=== PATIENT | female | born 1955 | race Caucasian/White ===

== ENCOUNTER → 2017-06-14 | Outpatient (CLI) | payer BC ==
--- NOTE | 2017-06-18 07:14 | MM ---
Reason for exam: screening (asymptomatic). Last mammogram was performed 1 year and 4 months ago. History: Patient is postmenopausal. Family history of breast cancer in sister at age 55. Physical Findings: A clinical breast exam by your physician is recommended on an annual basis and results should be correlated with mammographic findings. MG Screening Mammo w CAD Bilateral CC and MLO view(s) were taken. Prior study comparison: February 16, 2016, bilateral MG screening mammo w CAD. April 14, 2013, bilateral digital screening mammo w/CAD. There are scattered fibroglandular densities. No significant changes when compared with prior studies. ASSESSMENT: Negative, BI-RAD 1 RECOMMENDATION: Routine screening mammogram of both breasts in 1 year.
== END | disposition home or self-care (01) ==
LOC: RADMAMWWP 17:04
PROVIDERS: ATTEND Obstetrics & Gynecology
DX: Z12.31 Encounter for screening mammogram for malignant neoplasm of breast (principal)

== ENCOUNTER → 2018-10-13 | Outpatient (CLI) | payer MEDICARE, BC ==
--- NOTE | 2018-10-14 09:47 | MM ---
Reason for exam: screening (asymptomatic). Last mammogram was performed 1 year and 4 months ago. History: Patient is postmenopausal. Family history of breast cancer in sister at age 55. Physical Findings: A clinical breast exam by your physician is recommended on an annual basis and results should be correlated with mammographic findings. MG 3D Screening Mammo W/Cad Bilateral CC and MLO view(s) were taken. Prior study comparison: June 14, 2017, bilateral MG screening mammo w CAD. February 16, 2016, bilateral MG screening mammo w CAD. The breast tissue is heterogeneously dense. This may lower the sensitivity of mammography. There is no discrete abnormality. No significant changes when compared with prior studies. ASSESSMENT: Negative, BI-RAD 1 RECOMMENDATION: Routine screening mammogram of both breasts in 1 year.
== END | disposition home or self-care (01) ==
LOC: RADMAMWWP 07:17
PROVIDERS: ATTEND Obstetrics & Gynecology
DX: Z12.31 Encounter for screening mammogram for malignant neoplasm of breast (principal)
CPT/HCPCS: 77063; 77067

== ENCOUNTER → 2020-05-03 | Outpatient (CLI) | payer MEDICARE, BC ==
--- NOTE | 2020-05-05 09:25 | MM ---
Reason for exam: screening (asymptomatic). Last mammogram was performed 1 year and 7 months ago. History: Patient is postmenopausal. Family history of breast cancer in sister at age 55. Physical Findings: A clinical breast exam by your physician is recommended on an annual basis and results should be correlated with mammographic findings. MG 3D Screening Mammo W/Cad Bilateral CC and MLO view(s) were taken. Prior study comparison: October 13, 2018, bilateral MG 3d screening mammo w/cad. June 14, 2017, bilateral MG screening mammo w CAD. The breast tissue is heterogeneously dense. This may lower the sensitivity of mammography. No significant changes when compared with prior studies. ASSESSMENT: Benign, BI-RAD 2 RECOMMENDATION: Routine screening mammogram of both breasts in 1 year.
== END | disposition home or self-care (01) ==
LOC: RADMAMWWP 13:40
PROVIDERS: ATTEND Obstetrics & Gynecology
DX: Z12.31 Encounter for screening mammogram for malignant neoplasm of breast (principal); Z80.3 Family history of malignant neoplasm of breast
CPT/HCPCS: 77063; 77067

== ENCOUNTER 2021-07-24 10:09 | Emergency (ER) | payer MEDICARE, BC ==
--- NOTE | 2021-07-24 13:10 | ED ---
General Adult HPI - General Source: RN notes reviewed <Kasi Velasquez - Last Filed: 07/24/21 13:08> <Merle Mai - Last Filed: 07/27/21 00:34> - General Stated complaint: COVID + wants antibodies - History of Present Illness Initial comments: 65-year-old female presents to the emergency room for a chief complaint of antibodies. Patient states that last she started to feel sick. States she had a cough and head cold. States the cough resolved and she is still having a head cold including congestion. Patient states that she would like to antibodies. Denies shortness of breath. Denies chest pain. Denies fevers.Patient has no other complaints at this time including shortness of breath, chest pain, abdominal pain, nausea or vomiting, headache, or visual changes. (Kasi Velasquez) - Related Data Allergies Allergy/AdvReac Type Severity Reaction Status Date / Time No Known Allergies Allergy Verified 07/24/21 13:09 Review of Systems ROS Other: All systems not noted in ROS Statement are negative. <Kasi Velasquez - Last Filed: 07/24/21 13:08> ROS Other: All systems not noted in ROS Statement are negative. <Merle Mai - Last Filed: 07/27/21 00:34> ROS Statement: Those systems with pertinent positive or pertinent negative responses have been documented in the HPI. General Exam General appearance: alert, in no apparent distress Head exam: Present: atraumatic Eye exam: Present: normal appearance, PERRL, EOMI. Absent: scleral icterus, conjunctival injection ENT exam: Present: normal exam, mucous membranes moist Neck exam: Present: normal inspection, full ROM. Absent: tenderness Respiratory exam: Present: normal lung sounds bilaterally. Absent: respiratory distress, wheezes Cardiovascular Exam: Present: regular rate, normal rhythm, normal heart sounds GI/Abdominal exam: Present: soft, normal bowel sounds <Kasi Velasquez - Last Filed: 07/24/21 13:08> Course Vital Signs 07/24/21 07/24/21 07/24/21 13:03 13:38 14:02 Temperature 97.6 F 98.4 F 98.4 F Pulse Rate 77 Pulse Rate [ 74 71 Left Pulse Oximetery] Respiratory 18 16 16 Rate Blood Pressure 140/73 Blood Pressure 145/82 134/76 [Left Arm Sitting] O2 Sat by Pulse 98 99 99 Oximetry Medical Decision Making <Kasi Velasquez - Last Filed: 07/24/21 13:08> <Merle Mai - Last Filed: 07/27/21 00:34> - Medical Decision Making Vitals are stable. Patient is well-appearing. 98% on room air. No respiratory distress. Patient had a positive test at home. Patient was given antibodies and discharged home with strict return parameters. (Kasi Velasquez) I was available for consultation in the emergency department. The history and physical exam were done by the midlevel provider. I was consulted for this patients care. I reviewed the case with the midlevel provider and based on thei r presentation of the patient, I agree with the assessment, medical decision making and plan of care as documented. Chart was dictated using [employer] dictation software. Attempts were made to correct any dictation errors however some typographical errors may persist. (Merle Mai) Disposition Is patient prescribed a controlled substance at d/c from ED?: No Time of Disposition: 13:09 <Kasi Velasquez - Last Filed: 07/24/21 13:08> <Merle Mai - Last Filed: 07/27/21 00:34> Clinical Impression: COVID-19 Disposition: HOME SELF-CARE Condition: Good Instructions (If sedation given, give patient instructions): Coronavirus Disease 2019 (COVID-19) Additional Instructions: Please follow-up with your doctor in one to 2 days. Return to the emergency room for any worsening symptoms. Referrals: Sandrita Maria MD [Primary Care Provider] - 1-2 days
[2021-07-24] MEDS ORDERED: SODIUM CHLORIDE 0.9% 50 ML IVPB ONE (13:30)
[2021-07-24] MEDS ORDERED: CASIRIVIMAB (REGN10933) (EUA) 600 MG, IMDEVIMAB (REGN10987) (EUA) 600 MG in SODIUM CHLO... IVPB ONE (13:30)
[2021-07-24 13:50] VITALS: RESP 16; TEMP 98.4
[2021-07-24 14:03] VITALS: BP 134/76; PULSE 71
== END 2021-07-24 14:49 | disposition home or self-care (01) ==
LOC: EC 10:09
DX: U07.1 COVID-19 (principal)
CPT/HCPCS: 99283 ×2; M0243; Q0243

== ENCOUNTER → 2021-08-31 | Outpatient (CLI) | payer MEDICARE, BC ==
--- NOTE | 2021-08-31 19:23 | BD ---
EXAMINATION TYPE: Axial Bone Density DATE OF EXAM: 08/31/2021 COMPARISON: NONE CLINICAL HISTORY: Postmenopausal screening Height: Weight: FRAX RISK QUESTIONS: Alcohol (3 or more units per day): no Family History (Parent hip fracture): no Glucocorticoids (More than 3mos): no (Ex: prednisone, prednisolone, methylprednisolone, dexamethasone, and hydrocortisone). History of Fracture in Adulthood: yes Secondary Osteoporosis: 1. Type 1 Diabetes: no 2. Hyperthyroidism: no 3. Menopause before 45: no 4. Malnutrition: no 5. Chronic liver disease: no Rheumatoid Arthritis: no Current Tobacco Use: no RISK FACTORS HISTORY OF: Surgery to Spine/Hip(right/left)/Wrist (right/left): no Family History of Osteoporosis: no Active: yes Diet low in dairy products/other sources of calcium: yes Postmenopausal woman: yes Lost more than 2 inches in height since high school: yes MEDICATIONS: aldactone, aspirin, coreg, Lipitor, losartan, Plavix Additional History: EXAM MEASUREMENTS: Bone mineral densitometry was performed using the [employer] System. Bone mineral density as measured about the Lumbar spine is: ----- L1-L4(G/cm2): 1.202 T Score Values are as follows: ----- L2: -0.7 ----- L3: 0.3 ----- L4: 1.0 ----- L1-L4: 0.2 Bone mineral density : baseline Bone mineral density about the R hip (g/cm2): 0.40 Bone mineral density about the L hip (g/cm2): 0.887 T Score values are as follows: -----R Neck: -1.4 -----L Neck: -1.1 -----R Total: -0.4 -----L Total: -0.5 Bone mineral density : baseline IMPRESSION: Osteopenia (T Score between -2.5 and -1). There is slightly increased risk of fracture and the patient may be considered for treatment. Re-Screen 2-5 years. NOTE: T-SCORE=SD OF THE YOUNG ADULT MEAN.
== END | disposition home or self-care (01) ==
LOC: RADBDWWP 09:47
PROVIDERS: ATTEND Obstetrics & Gynecology
DX: M85.89 Other specified disorders of bone density and structure, multiple sites (principal); Z78.0 Asymptomatic menopausal state
CPT/HCPCS: 77080

== ENCOUNTER → 2021-09-27 | Outpatient (CLI) | payer MEDICARE, BC ==
--- NOTE | 2021-09-28 10:10 | MM ---
Reason for exam: screening (asymptomatic). Last mammogram was performed 1 year and 5 months ago. History: Patient is postmenopausal. Family history of breast cancer in sister at age 55. Physical Findings: A clinical breast exam by your physician is recommended on an annual basis and results should be correlated with mammographic findings. MG 3D Screening Mammo W/Cad Bilateral CC and MLO view(s) were taken. Prior study comparison: May 03, 2020, bilateral MG 3d screening mammo w/cad. October 13, 2018, bilateral MG 3d screening mammo w/cad. The breast tissue is heterogeneously dense. This may lower the sensitivity of mammography. There are benign appearing vascular calcifications bilaterally. There is no discrete abnormality. ASSESSMENT: Benign, BI-RAD 2 RECOMMENDATION: Routine screening mammogram of both breasts in 1 year.
== END | disposition home or self-care (01) ==
LOC: RADMAMWWP 14:30
PROVIDERS: ATTEND Obstetrics & Gynecology
DX: Z12.31 Encounter for screening mammogram for malignant neoplasm of breast (principal); Z78.0 Asymptomatic menopausal state; Z80.3 Family history of malignant neoplasm of breast
CPT/HCPCS: 77063; 77067

== ENCOUNTER → 2022-07-19 | Outpatient (CLI) | payer MEDICARE ==
--- NOTE | 2022-07-19 16:13 | MR ---
EXAMINATION TYPE: MR knee RT wo con DATE OF EXAM: 07/19/2022 COMPARISON: Outside right knee x-ray June 12, 2022 HISTORY: RIGHT KNEE PAIN for 2 months TECHNIQUE: Multiplanar, multisequence imaging of the right knee is performed without IV contrast. FINDINGS: MEDIAL MENISCUS: Oblique signal posterior horn extending to inferior articular surface. There is dora cent cystic change and fluid posteriorly. LATERAL MENISCUS: Anterior and posterior horns are intact without tear. CRUCIATE LIGAMENTS: The anterior and posterior cruciate ligaments are intact and unremarkable. COLLATERAL LIGAMENTS: The medial collateral ligament and lateral collateral ligament complex are inta ct. Mild fluid signal surrounding the medial collateral ligament. EXTENSOR MECHANISM: Visualized quadriceps and patellar tendons are intact. EFFUSION: Small to moderate size suprapatellar joint effusion. POPLITEAL CYST: Small to moderate size popliteal/stephenson cyst measuring 4.4 cm long axis sagittal imag e 10. TRICOMPARTMENT SPACES: Mild to moderate tricompartment joint space loss and mild spurring. CARTILAGE: Chondromalacia patella with full-thickness cartilaginous loss along the medial aspect of t he posterior patellar pole. BONE MARROW SIGNAL: Focal area of diminished T1 and increased T2 signal involving the medial tibial p lateau slightly inferior portion coronal image 20 for reference. OTHER: No additional significant abnormality is appreciated. IMPRESSION: 1. Oblique full-thickness tear posterior horn medial meniscus. 2. Mild MCL sprain injury. 3. Small to moderate-sized suprapatellar joint effusion. 4. Small to moderate-sized popliteal cyst. 5. Tricompartment degenerative changes with mild at least moderate findings medial aspect of the nettles llofemoral compartment as detailed above.
== END | disposition home or self-care (01) ==
LOC: RADMRIMAIN 10:54
PROVIDERS: ATTEND Orthopaedic Surgery
DX: S83.411A Sprain of medial collateral ligament of right knee, initial encounter (principal); M17.11 Unilateral primary osteoarthritis, right knee; M23.321 Other meniscus derangements, posterior horn of medial meniscus, right knee; M71.21 Synovial cyst of popliteal space [Baker], right knee

== ENCOUNTER 2022-10-04 10:22 | Day surgery (SDC) | payer MEDICARE ==
--- NOTE | 2022-10-04 07:39 | HP ---
HISTORY AND PHYSICAL DATE OF SURGERY: 10/04/2022. HISTORY OF PRESENT ILLNESS: Peg Love is a 66-year-old patient, seen with progressive right knee pain. We discussed options for treatment. She elected to proceed with right knee arthroscopy. Consent regarding the procedure was obtained. Cardiac clearance was provided. PAST MEDICAL HISTORY: Cardiovascular disease, hypertension, and hyperlipidemia. PAST SURGICAL HISTORY: Noncontributory. DAILY MEDICATIONS: 1. Aldactone. 2. Coreg. 3. Lipitor. 4. Losartan. 5. Plavix. ALLERGIES: None. SOCIAL HISTORY: She denies tobacco use. PHYSICAL EVALUATION OF THE RIGHT KNEE: Range of motion is 0 to 130 degrees. There is a mild effusion present. Tenderness along the medial joint line. Positive medial Loi's. Ligaments are stable. Hip rotation is without pain. Her distal neurovascular exam is intact. IMAGING STUDIES: Radiographs of the right knee revealed [id number] osteoarthritic changes. Right knee MRI revealed medial meniscal tear, effusion, and osteoarthritic changes. IMPRESSION: 1. Internal derangement of right knee with medial meniscal tear. 2. Hypertension. 3. Hyperlipidemia. 4. Cardiovascular disease. PLAN: Right knee arthroscopy with partial medial meniscectomy and debridement. MMODL / IJN: [id number] /
[~2022-10-04 10:22] MED LIST: DEXAMETHASONE SOD PHOSPHATE 4 MG/ML 1 ML VIAL IV ONE; HYDROmorphone 0.5 MG/0.5 ML SYRINGE IVP PRN; LACTATED RINGERS 1,000 ML IV SCH; MIDAZOLAM 2 MG/2 ML VIAL IV PRN; ONDANSETRON 4 MG/2 ML VIAL IVP ONE
[2022-10-04 10:48] VITALS: RESP 16; TEMP 96.8
[2022-10-04] MEDS ORDERED: MIDAZOLAM 2 MG/2 ML VIAL ONE (12:40)
[2022-10-04] MEDS ORDERED: LIDOCAINE 2% INJ 20 MG/ML (2 ML VIAL) ONE (12:40)
[2022-10-04] MEDS ORDERED: HYDROmorphone (PF) 1 MG/ML ONE (12:40)
[2022-10-04] MEDS ORDERED: PROPOFOL 10 MG/ML 20 ML VIAL IV ONE (12:40)
[2022-10-04] MEDS ORDERED: fentaNYL (PF) 50 MCG/ML 2 ML AMP ONE (12:40)
[2022-10-04] MEDS ORDERED: BUPIVACAIN-EPI 0.25%-1:200,000 30 ML VIAL INTRAARTIC ONE (13:02)
[2022-10-04] MEDS ORDERED: LACTATED RINGERS 1,000 ML IV ONE (13:17)
--- NOTE | 2022-10-04 13:31 | P.OP ---
Date of Procedure: 10/04/22 Preoperative Diagnosis: Internal derangement right knee Postoperative Diagnosis: 1. Tear medial and lateral meniscus right knee 2. Grade 4 chondromalacia medial femoral condyle right knee 3. Reactive synovitis medial, lateral and suprapatellar compartments right knee Procedure(s) Performed: 1. Arthroscopic partial medial and lateral meniscectomy right knee 2. Arthroscopic microfracture medial femoral condyle right knee 3. Arthroscopic partial synovectomy medial, lateral and suprapatellar compartments right knee Anesthesia: STEPHANIEA, local Surgeon: Parth Engle Estimated Blood Loss (ml): 10 Pathology: none sent Condition: stable Disposition: PACU Indications for Procedure: 66-year-old patient seen with progressive right knee pain. After having treatment options discussed, she elected to proceed with arthroscopy. Operative Findings: see description of procedure Description of Procedure: Patient was taken to the operative suite. Patient underwent a general anesthetic by the department of anesthesia. Patient was given preoperative antibiotics. The right lower extremity was placed in a well-padded arthroscopic leg street. The right leg was prepped and draped in the normal sterile orthopedic fashion. A lateral parapatellar and suprapatellar incision was made. Trochars were inserted. Arthroscopy was initiated. Suprapatellar pouch revealed diffuse thick reactive synovitis. The patellofemoral joint appeared to articulate congruently. There was grade 1 chondral malacia of the patella without significant osteochondral tears. The scope was guided into the medial gutter. No loose body or plica were identified. The scope was then guided into the medial compartment. A medial parapatellar incision was made. Trocar inserted followed by probe. There was a complex tear involving the posterior horn and midbody of the medial meniscus. There was some thick reactive some- itis anteriorly. There was an area of grade 4 chondromalacia weightbearing surface medial femoral condyle with a 1.5 cm area of exposed bone and some peripheral osteochondral flap tears as well. I performed a partial medial meniscectomy getting down to stable meniscal tissue. I performed a chondroplasty of the medial femoral condyle getting down to stable osteochondral tissue. I performed a partial synovectomy decompressing the reactive synovitis. I now introduced a microfracture awl and I performed a microfracture of the medial femoral condyle penetrating the bone with resultant bleeding at the microfracture site. The residual meniscus was stable. The residual osteochondral surface was stable. There was good decompression of the synovitis. Scope and probe were then guided into the intercondylar notch. Cruciates were identified, probed and found to be stable. The scope and probe were then guided into lateral compartment. There was a radial tear involving the posterior horn of the lateral meniscus. There were grade 1 chondral malacia changes of the femoral condyle and grade 2 chondromalacia changes of the lateral tibial plateau with no osteochondral tears present. There was some thick reactive synovitis anteriorly. I performed a partial lateral meniscectomy getting down to stable meniscal tissue. I performed a partial synovectomy decompressing the reactive synovitis. The residual meniscus was found to be stable. There was good decompression of the synovitis. The scope was in guided back into the suprapatellar compartment. I introduced a motorized shaver into the suprapatellar compartment. I debrided some piecemeal fragments of meniscus that I encountered. I performed a partial synovectomy. Shaver was removed. There was good decompression of the synovitis. I took one more look around the entire knee, no residual debris. Instruments were now removed from the joint. The joint was infiltrated with .25% Marcaine. Steri-Strips were applied to the portal sites. Sterile dressings were applied. The patient was placed into a MISAEL hose. No tourniquet was utilized. The patient was awakened, transferred to a bed and taken to recovery stable satisfactory condition.
[2022-10-04] MEDS ORDERED: HYDROmorphone 0.5 MG/0.5 ML SYRINGE IVP ONE (13:52)
[2022-10-04 15:02] VITALS: BP 130/83; PULSE 82
== END 2022-10-04 15:25 | disposition home or self-care (01) ==
LOC: OR 10:22
PROVIDERS: ATTEND Orthopaedic Surgery
DX: S83.231A Complex tear of medial meniscus, current injury, right knee, initial encounter (principal); S83.281A Other tear of lateral meniscus, current injury, right knee, initial encounter; M94.261 Chondromalacia, right knee; M65.861 Other synovitis and tenosynovitis, right lower leg; M17.11 Unilateral primary osteoarthritis, right knee; I25.10 Atherosclerotic heart disease of native coronary artery without angina pectoris; I10 Essential (primary) hypertension; E78.5 Hyperlipidemia, unspecified; Z79.02 Long term (current) use of antithrombotics/antiplatelets; Z79.52 Long term (current) use of systemic steroids; Z79.899 Other long term (current) drug therapy; Z95.5 Presence of coronary angioplasty implant and graft; Z98.890 Other specified postprocedural states
CPT/HCPCS: 29880; 29879; J2250; J1100; J2405; J0690; J3010; J1170 ×2; J2704; J2001

== ENCOUNTER → 2023-09-13 | Outpatient (CLI) | payer MEDICARE ==
[2023-09-13 15:50] LABS: Prothrombin Time 10.8 sec (9.9-11.9)
[2023-09-13 16:22] LABS: Basophils # (A) 0.04 X 10*3/uL (0.00-0.10); Basophils % (A) 0.8 %; Eosinophils # (A) 0.13 X 10*3/uL (0.04-0.35); Eosinophils % (A) 2.6 %; HCT 40.3 % (37.2-46.3); HGB 13.4 g/dL (12.0-15.0); Lymphocytes # (A) 1.22 X 10*3/uL (0.90-5.00); Lymphocytes % (A) 24.5 %; MCH 34.2 pg (27.0-32.0); MCHC 33.3 g/dL (32.0-37.0); MCV 102.8 FL (80.0-97.0); Mean Platelet Volume 8.7 FL (9.5-12.2); Monocytes # (A) 0.64 X 10*3/uL (0.20-1.00); Monocytes % (A) 12.9 %; NRBC Per 100 WBC 0 X 10*3/uL (0.00-0.01); Neutrophils # (A) 2.93 X 10*3/uL (1.80-7.70); Platelet Count 307 X 10*3/uL (140-440); RBC 3.92 X 10*6/uL (4.10-5.20); RDW 11.9 % (11.5-14.5); WBC 4.97 X 10*3/uL (4.50-10.00)
[2023-09-13 16:40] LABS: BUN/Creat Ratio 12.57 Ratio (12.00-20.00); Blood Urea Nitrogen 8.8 mg/dL (9.0-27.0); Glucose 93 mg/dL (70-110)
[2023-09-13 16:41] LABS: Calcium 9.6 mg/dL (8.7-10.3); Carbon Dioxide 23.9 mmol/L (21.6-31.8); Chloride 99 mmol/L (96-109); Potassium 4.6 mmol/L (3.5-5.5); Sodium 134 mmol/L (135-145)
== END | disposition home or self-care (01) ==
LOC: LABWHC1 08:18
PROVIDERS: ATTEND Orthopaedic Surgery
DX: Z01.812 Encounter for preprocedural laboratory examination (principal); Z22.322 Carrier or suspected carrier of Methicillin resistant Staphylococcus aureus; M17.11 Unilateral primary osteoarthritis, right knee
CPT/HCPCS: 36415; 80048; 85025; 85610; 87070

== ENCOUNTER 2023-09-30 07:59 | Observation (INO) | payer MEDICARE ==
--- NOTE | 2023-09-29 19:41 | HP ---
HISTORY AND PHYSICAL DATE OF SURGERY: 09/30/2023. HISTORY OF PRESENT ILLNESS: Peg Love is a 67-year-old patient seen with symptomatic right knee osteoarthritis. After treatment options were discussed, she elected to proceed with right total knee arthroplasty. Consent was obtained. She received preoperative medical clearance by Dr. Maria, and preoperative cardiac clearance by Dr. Campbell. PAST MEDICAL HISTORY: Cardiovascular disease, hypertension, hyperlipidemia. PAST SURGICAL HISTORY: Noncontributory. DAILY MEDICATIONS: 1. Aldactone. 2. Coreg. 3. Lipitor. 4. Losartan. 5. Plavix. ALLERGIES: None. SOCIAL HISTORY: She denies tobacco use. PHYSICAL EVALUATION OF THE RIGHT KNEE: Range of motion is -3 to 115 degrees. Tenderness, medial joint line. Crepitus, medial and patellofemoral compartments with range of motion. There is some pain with patellofemoral compression. Ligaments are stable. Hip rotation is without pain. Distal neurovascular exam is intact. IMAGING STUDIES: Right knee radiographs revealed severe osteoarthritic changes. IMPRESSION: 1. Right knee osteoarthritis. 2. Hypertension. 3. Hyperlipidemia. 4. Cardiovascular disease. PLAN: Right total knee arthroplasty. MMODL / IJN: [id number] /
[~2023-09-30 07:59] MED LIST changes: -DEXAMETHASONE SOD PHOSPHATE 4 MG/ML 1 ML VIAL IV ONE; -HYDROmorphone 0.5 MG/0.5 ML SYRINGE IVP PRN; -LACTATED RINGERS 1,000 ML IV SCH; -MIDAZOLAM 2 MG/2 ML VIAL IV PRN; -ONDANSETRON 4 MG/2 ML VIAL IVP ONE; +TRANEXAMIC 1,000 MG/100ML-NACL 1,000 MG in SALINE 1 100ML.BAG IVPB PRN
[2023-09-30] MEDS ORDERED: MIDAZOLAM 2 MG/2 ML VIAL IV PRN (08:01)
[2023-09-30] MEDS ORDERED: HYDROmorphone 0.5 MG/0.5 ML SYRINGE IVP PRN ×3 (08:01→11:28)
[2023-09-30] MEDS ORDERED: DEXAMETHASONE SOD PHOSPHATE 4 MG/ML 1 ML VIAL IV ONE (08:01)
[2023-09-30] MEDS ORDERED: ONDANSETRON 4 MG/2 ML VIAL IVP ONE (08:01)
[2023-09-30] MEDS: LACTATED RINGERS 1,000 ML IV SCH ×2 (08:10→17:26)
[2023-09-30] MEDS ORDERED: fentaNYL (PF) 50 MCG/ML 2 ML AMP IVP ONE (09:10)
[2023-09-30] MEDS ORDERED: diphenhydrAMINE 50 MG/ML 1 ML VIAL ONE (09:54)
[2023-09-30] MEDS ORDERED: SODIUM CHLORIDE 0.9% (PF) 10 ML VIAL ONE (09:54)
[2023-09-30] MEDS ORDERED: ROPIVACAINE 5 MG/ML 30 ML VIAL ONE (09:54)
[2023-09-30] MEDS ORDERED: PHENYLEPHRINE-0.9% NACL SYG 1,000 MCG/10 ML SYRINGE ONE (09:54)
[2023-09-30] MEDS ORDERED: LIDOCAINE 1% INJ 10MG/ML (20 ML MDV) ONE (09:54)
[2023-09-30] MEDS ORDERED: TRANEXAMIC 1,000 MG/100ML-NACL PREMIX BAG ONE (09:54)
[2023-09-30] MEDS ORDERED: MIDAZOLAM 2 MG/2 ML VIAL ONE (09:54)
[2023-09-30] MEDS ORDERED: KETAMINE HCL IN 0.9 % NACL 50 MG/5 ML SYRINGE ONE (09:54)
[2023-09-30] MEDS ORDERED: PROPOFOL 10 MG/ML 20 ML VIAL IV ONE (09:54)
[2023-09-30] MEDS ORDERED: ePHEDrine 50 MG/ML 1 ML VIAL ONE (09:54)
[2023-09-30] MEDS ORDERED: TRANEXAMIC 1,000 MG/100ML-NACL 2,000 MG in SALINE 1 100ML.BAG IVPB ONE (09:58)
--- NOTE | 2023-09-30 10:28 | P.ANPRN ---
Procedure Note - Anesthesia - Nerve Block Performed Right Adductor Canal Infusion Time Out Performed: Yes Date of Procedure: 09/30/23 Location of Patient: PreOp Indication: Acute Post-Operative Pain, Dx/Pain Location, Requested by Surgeon Specifically requested for management of pain by DrMatthew: Parth Engle Sedation Type: Sedate with meaningful contact maintained Preparation: Sterile Prep, Sterile Dressing Position: Supine Catheter: Indwelling Needle Types: Pajunk Needle Gauge: 18 Ultrasound used to visualize needle placement: Yes Ultrasound used to observe medication spread: Yes Injectate: 0.5% Ropivacaine (see comment for volume) (20 mL +10 mL of normal saline) Blood Aspirated: No Pain Paresthesia on Injection Noted: No Resistance on Injection: Normal Image Stored and Saved: Yes Events: Uneventful and Well Tolerated Right iPack Single Time Out Performed: Yes Date of Procedure: 09/30/23 Location of Patient: PreOp Indication: Acute Post-Operative Pain, Dx/Pain Location (Right knee), Requested by Surgeon Specifically requested for management of pain by DrMatthew: Parth Engle Sedation Type: Sedate with meaningful contact maintained Preparation: Sterile Prep Position: Left Lateral Catheter: None Needle Types: Pajunk Needle Gauge: 21 Ultrasound used to visualize needle placement: Yes Ultrasound used to observe medication spread: Yes Injectate: 0.5% Ropivacaine (see comment for volume) (20 mL +10 mL of normal saline) Blood Aspirated: No Pain Paresthesia on Injection Noted: No Resistance on Injection: Normal Image Stored and Saved: Yes Events: Uneventful and Well Tolerated
[2023-09-30] MEDS ORDERED: ceFAZolin 1,000 MG in SODIUM CHLORIDE 0.9% 1,000 ML IRRIGATION ONE (10:29)
[2023-09-30] MEDS ORDERED: ONDANSETRON 4 MG/2 ML VIAL IVP PRN (11:28)
[2023-09-30] MEDS ORDERED: NALOXONE 0.4 MG/ML 1 ML VIAL IV PRN (11:28)
[2023-09-30] MEDS ORDERED: HYDROcodone/APAP 5-325MG 1 EACH TAB PO PRN (11:28)
--- NOTE | 2023-09-30 11:28 | P.OP ---
Date of Procedure: 09/30/23 Preoperative Diagnosis: Right knee osteoarthritis Postoperative Diagnosis: Right knee osteoarthritis Procedure(s) Performed: Right total knee arthroplasty Implants: 1. Depuy attune cruciate retaining size 5 narrow right cemented femur 2. Depuy attune size 4 fixed bearing cemented tibial baseplate 3. Depuy attune size 5 fixed bearing cruciate retaining 8 mm polyethylene tibial insert 4. Depuy attune 38 mm all polyethylene cemented patella Anesthesia: regional (Adductor canal catheter, Ipack block), spinal Surgeon: Parth [place] Hemmer #1: Kelvin White Estimated Blood Loss (ml): 40 Pathology: none sent Condition: stable Disposition: PACU Indications for Procedure: 67-year-old patient seen with symptomatic right knee osteoarthritis. After treatment options were discussed, she elected to proceed with total knee arthroplasty. Operative Findings: See description of procedure Description of Procedure: Patient was taken to the operative suite after having an adductor canal catheter placed by the department of anesthesia. Patient underwent a spinal anesthetic by the department of anesthesia. Patient was given preoperative IV intake antibiotics and TXA. A well-padded tourniquet was placed about the right lower extremity. The lower extremity was then prepped and draped in the normal sterile orthopedic fashion. The extremity was elevated, a tourniquet was insufflated to 300. A standard anterior incision was made sharply through skin. Dissection was taken down through the subcutaneous soft tissues down to the extensor mechanism. A medial arthrotomy was performed, patella was everted and knee was flexed. There was advanced osteoarthritis noted. I introduced my distal intramedullary femoral drill. I then introduced the distal femoral cutting jig. Jonathan MG secured the cutting jig with 2 pins. I held retractors in position while Jonathan MG performed the distal femoral resection through the guide area we now removed her distal femoral cutting guide. We now placed our 4-in-1 femoral cutting block and positioned and it was secured with 2 pins by Jonathan MG while I held the block in position. The distal femoral finishing was now completed. A proximal tibial cutting guide was positioned. I held the guide in the appropriate position with both hands well Jonathan MG inserted stabilizing pins into the guide. Proximal tibial cut was made. We now placed a trial femoral component into position, along with an appropriate size tibial tray and insert. We now took the knee through range of motion and had full extension good flexion and good overall soft tissue balance noted. The patella was everted and stabilized with 2 towel clips held by Jonathan MG while I performed a flush with patellar quad tendon utilizing a fresh sawblade. We templated the patella, appropriate drill holes were made. An appropriate trial patella was positioned, knee was taken through full range of motion with the patella tracking very nicely. The trial patella was removed. Drill holes were made through the femoral component. All trial components were removed after marking off the appropriate rotation of the tibia. Retractors were now positioned along the proximal tibia. An appropriate keel punch was made with the appropriate size tibial guide by myself on Jonathan MG assisted by holding retractors. At this point appropriate size implants were chosen and opened. The joint was irrigated copiously with pulse lavage mechanical irrigation. The wound was irrigated with pulse lavage mechanical irrigation. We mixed antibiotic methylmethacrylate. We placed the knee into flexion. We placed multiple retractors assisted by Jonathan MG to expose the proximal tibia. Once the methyl methacrylate was ready, the tibial component was cemented into place removing any excess methylmethacrylate form by both myself and Jonathan MG. The femoral component was cemented into place removing the removing any excess methylmethacrylate performed by both myself and Jonathan MG. We then inserted the appropriate size polyethylene tibial insert. We made sure that it was locked into position. We took the knee into full extension, and then back in a flexion making sure we had removed any excess methylmethacrylate. The patellar component was then cemented down and secured with clamp. Excess methylmethacrylate removed. We kept the knee in full extension, patellar clamp in position until methylmethacrylate had hardened. Once it had hardened the patellar clamp was removed. The knee was taken through full range of motion. The patella tracked nicely. There was good soft tissue balancing. The tourniquet was now released. Additional hemostasis was achieved via electrocautery. A second gram of TXA was given. The wound again was irrigated with pulse lavage mechanical irrigation. The extensor mechanism was repaired with Ethibond suture. We checked the repair with range of motion and it was stable. The subcutaneous soft tissues were repaired with Vicryl in layers. The skin was approximated with pernio/Dermabond. Sterile dressings were applied followed by loose web roll and Nigel bandage. The patient was transferred to a bed, and taken to recovery in stable and satisfactory condition. Jonathan MG assisted with this complex procedure.
[2023-09-30] MEDS ORDERED: LACTATED RINGERS 1,000 ML IV ONE (11:48)
[2023-09-30] MEDS ORDERED: ROPIVACAINE 0.75% 1,100 MG, SODIUM CHLORIDE 0.9% 500 ML 403 ML, EMPTY PAIN BALL 1 EACH MISCELLANE PRN ×2 (12:01)
--- NOTE | 2023-09-30 12:49 | XR ---
EXAMINATION TYPE: XR knee limited RT DATE OF EXAM: 09/30/2023 12:46 PM CLINICAL INDICATION:Female, 67 years old with history of Evaluation for Postop abnormality and alignm ent; [facility] COMPARISON: None. TECHNIQUE: XR knee limited RT; examined in Frontal, lateral and oblique projections. FINDINGS: Status post total knee arthroplasty changes with hardware in appropriate alignment and in tact. No evidence of fracture. Subcutaneous lucencies and lucencies within the joint consistent with surgical changes. IMPRESSION: Status post total knee arthroplasty changes with hardware intact and appropriate alignment. No fractu res identified.
[2023-09-30] MEDS: HYDROmorphone 0.5 MG/0.5 ML SYRINGE IVP PRN ×2 (17:22→22:39)
[2023-09-30] MEDS: ENOXAPARIN 30 MG/0.3 ML SYRINGE SQ SCH (19:37)
[2023-09-30] MEDS: SENNOSIDES-DOCUSATE SODIUM 1 EACH TAB PO SCH (20:24)
[2023-09-30] MEDS: HYDROcodone/APAP 7.5-325MG 1 EACH TAB PO PRN (20:24)
[2023-09-30] MEDS: carvediloL 12.5 MG TAB PO SCH (20:24)
[2023-09-30] MEDS ORDERED: ATORVASTATIN 40 MG TAB PO SCH (21:00)
[2023-10-01] MEDS: HYDROmorphone 0.5 MG/0.5 ML SYRINGE IVP PRN ×5 (01:42→17:23)
[2023-10-01] MEDS: MELATONIN 3 MG TABLET PO SCH ×2 (01:43→20:37)
[2023-10-01] MEDS: LACTATED RINGERS 1,000 ML IV SCH ×3 (01:45→16:24)
[2023-10-01] MEDS: HYDROcodone/APAP 7.5-325MG 1 EACH TAB PO PRN ×4 (03:18→20:37)
[2023-10-01] MEDS: carvediloL 12.5 MG TAB PO SCH ×2 (08:02→20:37)
[2023-10-01] MEDS: ENOXAPARIN 30 MG/0.3 ML SYRINGE SQ SCH ×2 (08:02→20:37)
[2023-10-01] MEDS: MULTIVITAMINS, THERA 1 EACH TAB PO SCH ×2 (08:02→11:02)
--- NOTE | 2023-10-01 10:19 | P.PN ---
Subjective Progress Note Date: 10/01/23 Principal diagnosis: Status post right total knee arthroplasty Patient evaluated at bedside, she is resting in her hospital bed. She did okay with physical therapy, she had a harder time with stairs. She has an increase in pain noted significantly after therapy. She has utilized IV pain medication. She denies headaches, lightheadedness, chest pain or shortness of breath. Objective - Vital Signs Vital signs: Vital Signs Temp 98.4 F 10/01/23 07:16 Pulse 86 10/01/23 07:16 Resp 18 10/01/23 07:16 BP 148/71 10/01/23 07:16 Pulse Ox 93 L 10/01/23 07:16 FiO2 Intake & Output 09/30/23 10/01/23 10/01/23 18:59 06:59 18:59 Intake Total 1451 Output Total 40 Balance 1411 Weight 58.967 kg Intake: IV 1451 Output: Estimated Blood Loss 40 Other: Voiding Method Toilet # Voids 2 1 - Exam Right lower extremity: Incision is clean, dry, and intact. The foam dressing is in good condition. Th ere is minimal soft tissue swelling and ecchymosis surrounding the medial and lateral aspects of the incision. Calf is soft, no tenderness with palpation. Plantar flexion, dorsiflexion, EHL, FHL are intact. Sensory exam to light touch throughout the extremity is intact, dorsal pedis pulses 2+. Assessment and Plan Assessment: Postoperative day #1 status post right total knee arthroplasty Plan: Pain control, continue with [place], did change to every 4 hours. Also added tramadol 50 mg every 6 hours as needed for pain DVT prophylaxis, continue current medication Wound care instructions were discussed, this to include icing and elevating Weight-bear as tolerated, continue PT/OT, utilize walker Medical recommendations appreciated Encourage incentive spirometer Discharge planning: Would like to keep patient in hospital for 1 additional night for pain control and continue working with physical therapy Time with Patient: Less than 30
--- NOTE | 2023-10-01 10:54 | P.PN ---
Progress Note - Text Progress Note Date: 10/01/23 Postoperative day # 1 status post total knee arthroplasty, on adductor canal perineural catheter placed for postoperative analgesia. Ropivacaine 0.2% 8 mL per hour through ON-Q pump continuous infusion. Pain is well controlled. On visual analog scale 3/10 Patient is taking PRN oral pain medications. Catheter site: Looks Ok. There is no erythema or tenderness. Continue with the current pain management plan and will follow.
--- NOTE | 2023-10-01 12:50 | P.CONS ---
History of Present Illness - Reason for Consult Consult date: 10/01/23 - History of Present Illness This is a 67-year-old female with medical history of coronary artery disease with prior cardiac stenting has 4 stents total most recently was 5 years ago, hypertension, hyperlipidemia, arthritis, former smoker quit 5 years ago. Patient comes in for an elective right total knee arthroplasty. She is evaluated today postoperative day #1 she is having significant 10 out of 10 pain to the right knee had just worked with physical therapy doing the steps. She states that the [facility] is not helping the pain. Is difficult to gather much more history as she is so preoccupied with the pain at this time. She denies having any shortness of breath or chest pain no nausea she is passing gas no bowel movement yet. Hemodynamically she is stable afebrile on room air. REVIEW OF SYSTEMS: CONSTITUTIONAL: No fever, no malaise, no fatigue. HEENT: No recent visual problems or hearing problems. Denied any sore throat. CARDIOVASCULAR: No chest pain, orthopnea, PND, no palpitations, no syncope. PULMONARY: No shortness of breath, no cough, no hemoptysis. GASTROINTESTINAL: No diarrhea, no nausea, no vomiting, no abdominal pain. NEUROLOGICAL: No headaches, no weakness, no numbness. HEMATOLOGICAL: Denies any bleeding or petechiae. GENITOURINARY: Denies any burning micturition, frequency, or urgency. MUSCULOSKELETAL/RHEUMATOLOGICAL: Denies any joint pain, swelling, or any muscle pain. ENDOCRINE: Denies any polyuria or polydipsia. The rest of the 14-point review of systems is negative. PHYSICAL EXAMINATION: GENERAL: The patient is alert and oriented x3, not in any acute distress. Well developed, well nourished. HEENT: Pupils are round and equally reacting to light. EOMI. No scleral icterus. No conjunctival pallor. Normocephalic, atraumatic. No pharyngeal erythema. No thyromegaly. CARDIOVASCULAR: S1 and S2 present. No murmurs, rubs, or gallops. PULMONARY: Chest is clear to auscultation, no wheezing or crackles. ABDOMEN: Soft, nontender, nondistended, normoactive bowel sounds. No palpable organomegaly. MUSCULOSKELETAL: No joint swelling or deformity. Postoperative right knee EXTREMITIES: No cyanosis, clubbing, or pedal edema. NEUROLOGICAL: Gross neurological examination did not reveal any focal deficits. SKIN: No rashes. Assessment and Plan Osteoarthritis postoperative day #1 Right total knee arthroplasty patient currently is having extensive pain to the right knee and will be held overnight for further pain management by orthopedics. Coronary artery disease with prior cardiac stenting maintained on Plavix when cleared by surgery Hypertension continue on carvedilol Hyperlipidemia continue on statin therapy Former smoker GI prophylaxis DVT prophylaxis Lovenox Full Code The impression and plan of care has been dictated by Roxane Spears, Nurse Practitioner as directed. Dr. Cosme MD I have performed a history and physical examination and medical decision making of this patient, discussed the same with the dictator, and agree with the dictators assessment and plan as written, documented as a scribe. Based on total visit time, I have performed more than 50% of this visit. Past Medical History Past Medical History: Coronary Artery Disease (CAD), Hyperlipidemia, Osteoarthritis (OA) History of Any Multi-Drug Resistant Organisms: None Reported Past Surgical History: Heart Catheterization With Stent, Tonsillectomy Additional Past Surgical History / Comment(s): HAS HAD 4 CARDIAC stents, 2 MONTHS APART. MENISCUS ho KNEE. BUNIONECOMY LEFT. trigger finger. hemorrhoid surgery,colonoscopy Past Anesthesia/Blood Transfusion Reactions: No Reported Reaction Additional Past Anesthesia/Blood Transfusion Reaction / Comm: with trigger finger surgery pt had difficulty with BM and urination afterward she was told it was caused by zofran Date of Last Stent Placement:: AT [facility] AGE 62 Past Psychological History: No Psychological Hx Reported Smoking Status: Former smoker Past Alcohol Use History: Occasional Additional Past Alcohol Use History / Comment(s): quit smoking at 62yrs old. <1 ppd Past Drug Use History: None Reported - Past Family History Mother Family Medical History: Cancer Additional Family Medical History / Comment(s): leukemia @ 39yr Father Family Medical History: Cancer Additional Family Medical History / Comment(s): colon cancer, at 63ys Medications and Allergies Home Medications Medication Instructions Recorded Confirmed Type Atorvastatin [Lipitor] 40 mg PO MOWEFR 10/01/22 09/24/23 History Clopidogrel [Plavix] 75 mg PO MOWEFR 10/01/22 09/30/23 History Losartan [Cozaar] 25 mg PO HS 10/01/22 09/30/23 History Spironolactone 12.5 mg PO QAM 10/01/22 09/30/23 History carvediloL 12.5 mg PO DAILY 10/01/22 09/30/23 History Atorvastatin [Lipitor] 20 mg PO SUTUTHSA 09/24/23 09/30/23 History Clopidogrel [Plavix] 37.5 mg PO SUTUTHSA 09/24/23 09/30/23 History Unk Multi Vitamin 1 tab PO DAILY 09/24/23 09/30/23 History carvediloL 25 mg PO HS 09/24/23 09/30/23 History Allergies Allergy/AdvReac Type Severity Reaction Status Date / Time ondansetron [From Zofran] AdvReac Abdominal Verified 09/30/23 08:28 Pain Physical Exam Vitals: Vital Signs Temp Pulse Pulse Resp BP Pulse Ox 10/01/23 07:16 98.4 F 86 18 148/71 93 L 10/01/23 02:00 98 F 81 132/67 97 09/30/23 20:00 98.3 F 71 124/68 94 L 09/30/23 15:35 72 134/75 94 L 09/30/23 15:20 73 129/74 93 L 09/30/23 15:05 73 134/77 92 L 09/30/23 14:50 75 138/74 91 L 09/30/23 14:47 97.7 F 69 20 148/74 93 L 09/30/23 13:34 68 14 136/69 96 09/30/23 13:04 64 18 140/66 96 09/30/23 12:49 62 18 134/62 96 09/30/23 12:34 67 18 145/72 96 09/30/23 12:19 61 19 140/62 98 09/30/23 12:04 63 22 136/63 96 09/30/23 11:49 97 F L 64 15 118/57 100 Intake and Output 09/30/23 10/01/23 10/01/23 22:59 06:59 14:59 Other: Voiding Method Toilet # Voids 2 1 Weight 58.967 kg Assessment and Plan Time with Patient: Less than 30
[2023-10-01 13:39] LABS: Basophils # (A) 0.03 X 10*3/uL (0.00-0.10); Basophils % (A) 0.3 %; Eosinophils # (A) 0.05 X 10*3/uL (0.04-0.35); Eosinophils % (A) 0.5 %; HCT 34.7 % (37.2-46.3); HGB 11.3 g/dL (12.0-15.0); Lymphocytes # (A) 0.64 X 10*3/uL (0.90-5.00); Lymphocytes % (A) 6.7 %; MCH 33.5 pg (27.0-32.0); MCHC 32.6 g/dL (32.0-37.0); Mean Platelet Volume 8.8 FL (9.5-12.2); Monocytes # (A) 1.12 X 10*3/uL (0.20-1.00); Monocytes % (A) 11.8 %; NRBC Per 100 WBC 0 X 10*3/uL (0.00-0.01); Neutrophils # (A) 7.66 X 10*3/uL (1.80-7.70); Neutrophils % (A) 80.5 %; Platelet Count 256 X 10*3/uL (140-440); RBC 3.37 X 10*6/uL (4.10-5.20); RDW 11.9 % (11.5-14.5); WBC 9.52 X 10*3/uL (4.50-10.00)
[2023-10-01 13:47] LABS: Blood Urea Nitrogen 8.1 mg/dL (9.0-27.0); Calcium 8.7 mg/dL (8.7-10.3); Chloride 100 mmol/L (96-109); Glucose 118 mg/dL (70-110); Potassium 4.3 mmol/L (3.5-5.5); Sodium 132 mmol/L (135-145)
[2023-10-01] MEDS: traMADol 50 MG TAB PO PRN ×2 (15:12→23:39)
[2023-10-01] MEDS: hydrOXYzine pamoate 25 MG CAP PO PRN ×2 (16:20→22:35)
[2023-10-01] MEDS: SENNOSIDES-DOCUSATE SODIUM 1 EACH TAB PO SCH (20:37)
[2023-10-01] MEDS ORDERED: ATORVASTATIN 20 MG TAB PO SCH (21:00)
[2023-10-02] MEDS: LACTATED RINGERS 1,000 ML IV SCH ×2 (00:46→09:06)
[2023-10-02] MEDS: HYDROcodone/APAP 7.5-325MG 1 EACH TAB PO PRN ×3 (06:21→14:10)
[2023-10-02 07:46] VITALS: BP 110/63; PULSE 93; RESP 18; TEMP 97.8
[2023-10-02] MEDS: ENOXAPARIN 30 MG/0.3 ML SYRINGE SQ SCH (08:44)
[2023-10-02] MEDS: MULTIVITAMINS, THERA 1 EACH TAB PO SCH ×2 (08:44→12:59)
[2023-10-02] MEDS: carvediloL 12.5 MG TAB PO SCH (08:44)
[2023-10-02] MEDS ORDERED: FAMOTIDINE 20 MG TAB PO SCH (09:00)
--- NOTE | 2023-10-02 10:15 | P.PN ---
Subjective Progress Note Date: 10/02/23 Principal diagnosis: Status post right total knee arthroplasty Patient evaluated at bedside, she is resting in her hospital bed. Patient is feeling a lot better today, she is eager with physical therapy. She is to be discharged home today. She denies headaches, lightheadedness, chest pain or shortness of breath. Objective - Vital Signs Vital signs: Vital Signs Temp 97.8 F 10/02/23 07:34 Pulse 93 10/02/23 07:34 Resp 18 10/02/23 07:34 BP 110/63 10/02/23 07:34 Pulse Ox 93 L 10/02/23 07:34 FiO2 Intake & Output 10/01/23 10/02/23 10/02/23 18:59 06:59 18:59 Other: Voiding Method Toilet # Voids 4 1 - Exam Right lower extremity: Incision is clean, dry, and intact. The foam dressing is in good condition. There is minimal soft tissue swelling and ecchymosis surrounding the medial and lateral aspects of the incision. Calf is soft, no tenderness with palpation. Plantar flexion, dorsiflexion, EHL, FHL are intact. Sensory exam to light touch throughout the extremity is intact, dorsal pedis pulses 2+. - Labs CBC & Chem 7: 10/01/23 05:54 10/01/23 05:54 Labs: Abnormal Lab Results - Last 24 Hours (Table) 10/01/23 10/01/23 Range/Units 05:54 05:54 RBC 3.37 L (4.10-5.20) X 10*6/uL Hgb 11.3 L (12.0-15.0) g/dL Hct 34.7 L (37.2-46.3) % MCV 103.0 H (80.0-97.0) FL MCH 33.5 H (27.0-32.0) pg MPV 8.8 L (9.5-12.2) FL Lymphocytes # 0.64 L (0.90-5.00) X 10*3/uL Monocytes # 1.12 H (0.20-1.00) X 10*3/uL Sodium 132 L (135-145) mmol/L BUN 8.1 L (9.0-27.0) mg/dL Glucose 118 H (70-110) mg/dL Assessment and Plan Assessment: Postoperative day #2 status post right total knee arthroplasty Plan: Pain control, plan for discharge home on [place] and Vistaril DVT prophylaxis, continue current medication. Patient will resume normally prescribed Plavix after discharge Wound care instructions were discussed, this to include icing and elevating Weight-bear as tolerated, continue PT/OT, utilize walker Medical recommendations appreciated Encourage incentive spirometer Discharge planning: Plan for discharge home today with home health care Time with Patient: Less than 30
--- NOTE | 2023-10-02 10:19 | P.DS ---
Providers Date of admission: 10/01/23 10:19 Expected date of discharge: 10/02/23 Attending physician: Parth Engle Consults: 09/30/23 13:51 Consult Physician Routine Consulting Provider: Gela Holcomb Consult Reason/Comments: medical managment, Do you want consulting provider notified?: Yes Primary care physician: [facility] Course: Date of admission: 09/30/2023 Date of discharge: 10/02/2023 Admission diagnosis: Status post right total knee arthroplasty Discharge diagnosis: Same Attending physician: Dr. Engle Surgical procedures: Right total knee arthroplasty Brief history: Patient is a 67-year-old female with a history of progressive primary right knee osteoarthritis. At this point patient has failed conservative treatment measures and has opted to proceed with a elective right total knee arthroplasty. Hospital course: Details of patient's surgery can be found in operative report. Patient tolerated the procedure well and was subsequently transported to orthopedic floor. Patient's orthopeidc and medical care was provided daily. Patient had daily laboratory tests performed for evaluation of overall blood counts. Patient had daily physical therapy to include strengthening range of motion as well as education with walker ambulation. Patient was treated with Lovenox for their postoperative DVT prophylaxis during their inpatient stay. Patient was noted to have a relatively uneventful postoperative course. Patient reported satisfactory pain control with oral pain medications by postoperative day 2. Patient showed satisfactory progress with physical therapy. Patient moved steadily through the program and had no difficulty meeting the goals by postoperative day 2. Given patient's otherwise satisfactory course and having met physical therapy goals, plan is to discharge patient home on postoperative day 2. Discharge condition/disposition: Patient will be discharged home in stable condition. Discharge medications: Instructions are given on resumption of patient's normal daily medications per primary care recommendation, in addition patient will be prescribed [place] 7.5 mg/325 mg, Vistaril 25 mg, senna S. Discharge instructions: 1. Wound care and infection precautions, keep incision dry and covered while showering, no lotions, creams, moisturizers. No soaking, tubs, pools, hottubs. Do not scrub over the incision. 2. Weight-bear as tolerated with walker / cane until follow-up. 3. Ice and elevate when necessary. Do not exceed 20 minutes per hour with ice pack. 4. Utilize compression sleeve until seen at first follow up appointment. 5. Visiting nursing care. 6. Home physical therapy including home CPM. 7. Pain meds and anticoagulants per prescription. 8. Pain medication has potential to cause constipation. Increase oral fluid and fiber intake. Contact primary care provider if you have not had a bowel movement within 48 hours after discharge 9. No anti-inflammatory medication until discussed at first post operative visit, this including Motrin, Aleve, Mobic, Diclofenac. 10. Follow up in office at 2 weeks postop with Jonathan White PA-C/Tino Walters 11. Follow up with your primary care doctor 7-10 days after discharge. 12. Contact [facility] with any questions, . Procedures: Right total knee arthroplasty Patient Condition at Discharge: Good Plan - Discharge Summary Discharge Rx Participant: No New Discharge Prescriptions: New HYDROcodone/APAP 7.5-325MG [[place] 7.5] 1 each PO Q4HR PRN #42 tab PRN Reason: Pain Sennosides/Docusate Sodium [Senna-S 8.6-50 mg Tablet] 2 each PO DAILY PRN #30 tablet PRN Reason: Constipation hydrOXYzine pamoate [Vistaril] 25 mg PO Q6HR #30 capsule Continue Clopidogrel [Plavix] 75 mg PO MOWEFR Losartan [Cozaar] 25 mg PO HS carvediloL 12.5 mg PO DAILY Spironolactone 12.5 mg PO QAM Clopidogrel [Plavix] 37.5 mg PO SUTUTHSA Unk Multi Vitamin 1 tab PO DAILY Atorvastatin [Lipitor] 40 mg PO MOWEFR Atorvastatin [Lipitor] 20 mg PO SUTUTHSA carvediloL 25 mg PO HS Discharge Medication List Atorvastatin [Lipitor] 40 mg PO MOWEFR 10/01/22 [History] Clopidogrel [Plavix] 75 mg PO MOWEFR 10/01/22 [History] Losartan [Cozaar] 25 mg PO HS 10/01/22 [History] Spironolactone 12.5 mg PO QAM 10/01/22 [History] carvediloL 12.5 mg PO DAILY 10/01/22 [History] Atorvastatin [Lipitor] 20 mg PO SUTUTHSA 09/24/23 [History] Clopidogrel [Plavix] 37.5 mg PO SUTUTHSA 09/24/23 [History] Unk Multi Vitamin 1 tab PO DAILY 09/24/23 [History] carvediloL 25 mg PO HS 09/24/23 [History] HYDROcodone/APAP 7.5-325MG [[place] 7.5] 1 each PO Q4HR PRN #42 tab 10/02/23 [Rx] Sennosides/Docusate Sodium [Senna-S 8.6-50 mg Tablet] 2 each PO DAILY PRN #30 tablet 10/02/23 [Rx] hydrOXYzine pamoate [Vistaril] 25 mg PO Q6HR #30 capsule 10/02/23 [Rx] Follow up Appointment(s)/Referral(s): [facility] [NON-STAFF] - 1 Week (Call [facility] when you get home and they will deliver your CPM) Kelvin White PAC [PHYSICIAN PLASTICS FABRICATOR OR WELDER] - 2 Weeks [facility] [NON[facility]] - 1 Week ([facility] will call you to arrange a visit) Activity/Diet/Wound Care/Special Instructions: Orthopedic Discharge Instructions: 1. Wound care and infection precautions, keep incision dry and covered while showering, no lotions, creams, moisturizers. No soaking, pools, hot tubs. Do not scrub over incision. 2. Weight-bear as tolerated with walker / cane until follow-up. 3. Ice and elevate when necessary. Do not exceed 20 minutes per hour with ice pack. 4. Utilize compression sleeve until seen at first follow up appointment. 5. Pain meds and anticoagulants per prescription. 6. Pain medication has potential to cause constipation. Increase oral fluid and fiber intake. Contact primary care provider if you have not had a bowel movement within 48 hours after discharge. 7. No anti-inflammatory medication until discussed at first post operative visit, this including Motrin, Aleve, Mobic, Diclofenac. 8. Follow up in office at 2 weeks postop with Jonathan White PA-C/Tino Fernandez PA-C 9. Follow up with your primary care doctor 7-10 days after discharge. 10. Contact [facility] with any questions, . Wound care instructions: 1. Okay to remove surgical bandage as of 10/07/2023 2. Okay to shower directly over incision after removal of dressing Discharge Disposition: HOME WITH HOME HEALTH SERVICES
[2023-10-02 12:58] LABS: African American GFR (CKD) >90 (>60 ml/min/1.73 sqM); Blood Urea Nitrogen 5 mg/dL (7-17); Calcium 8.8 mg/dL (8.4-10.2); Carbon Dioxide 24 mmol/L (22-30); Chloride 100 mmol/L (98-107); Glucose 104 mg/dL (74-99); Non-African American GFR(CKD) >90 (>60 ml/min/1.73 sqM)
[2023-10-02 13:23] LABS: Anion Gap 3 mmol/L; Potassium 4.1 mmol/L (3.5-5.1); Sodium 127 mmol/L (137-145)
--- NOTE | 2023-10-02 13:54 | P.PN ---
Subjective Progress Note Date: 10/02/23 This is a 67-year-old female with medical history of coronary artery disease with prior cardiac stenting has 4 stents total most recently was 5 years ago, hypertension, hyperlipidemia, arthritis, former smoker quit 5 years ago. Patient comes in for an elective right total knee arthroplasty. She is evalua marce today postoperative day #1 she is having significant 10 out of 10 pain to the right knee had just worked with physical therapy doing the steps. She states that the [place] is not helping the pain. Is difficult to gather much more history as she is so preoccupied with the pain at this time. She denies having any shortness of breath or chest pain no nausea she is passing gas no bowel movement yet. Hemodynamically she is stable afebrile on room air. 10/03/2023 Patient is evaluated today resting in bed. She does continue to report pain to the right knee about a 5 out of 10 however states overall it is improved from yesterday. No numbness or tingling down the leg. She has no shortness of breath no chest pain tolerating diet no nausea vomiting diarrhea. Patient planning to discharge home today with home physical therapy. She can continue on all same home medications at this time. REVIEW OF SYSTEMS: CONSTITUTIONAL: No fever, no malaise, no fatigue. HEENT: No recent visual problems or hearing problems. Denied any sore throat. CARDIOVASCULAR: No chest pain, orthopnea, PND, no palpitations, no syncope. PULMONARY: No shortness of breath, no cough, no hemoptysis. GASTROINTESTINAL: No diarrhea, no nausea, no vomiting, no abdominal pain. NEUROLOGICAL: No headaches, no weakness, no numbness. PHYSICAL EXAMINATION: GENERAL: The patient is alert and oriented x3, not in any acute distress. Well developed, well nourished. HEENT: Pupils are round and equally reacting to light. EOMI. No scleral icterus. No conjunctival pallor. Normocephalic, atraumatic. No pharyngeal erythema. No thyromegaly. CARDIOVASCULAR: S1 and S2 present. No murmurs, rubs, or gallops. PULMONARY: Chest is clear to auscultation, no wheezing or crackles. ABDOMEN: Soft, nontender, nondistended, normoactive bowel sounds. No palpable organomegaly. MUSCULOSKELETAL: No joint swelling or deformity. Postoperative right knee EXTREMITIES: No cyanosis, clubbing, or pedal edema. NEUROLOGICAL: Gross neurological examination did not reveal any focal deficits. SKIN: No rashes. Assessment and Plan Osteoarthritis postoperative day #2 Right total knee arthroplasty patient currently is having extensive pain to the right knee and will be held overnight for further pain management by orthopedics. Coronary artery disease with prior cardiac stenting maintained on Plavix when cleared by surgery Hypertension continue on carvedilol Hyperlipidemia continue on statin therapy Former smoker GI prophylaxis DVT prophylaxis Lovenox Full Code The impression and plan of care has been dictated by Roxane Spears, Nurse Practitioner as directed. Dr. Cosme MD I have performed a history and physical examination and medical decision making of this patient, discussed the same with the dictator, and agree with the dictators assessment and plan as written, documented as a scribe. Based on total visit time, I have performed more than 50% of this visit. Objective - Vital Signs Vital signs: Vital Signs Temp 97.8 F 10/02/23 07:34 Pulse 93 10/02/23 07:34 Resp 18 10/02/23 07:34 BP 110/63 10/02/23 07:34 Pulse Ox 93 L 10/02/23 07:34 FiO2 Intake & Output 10/01/23 10/02/23 10/02/23 18:59 06:59 18:59 Other: Voiding Method Toilet # Voids 4 1 - Labs CBC & Chem 7: 10/01/23 05:54 10/02/23 12:16 Labs: Abnormal Lab Results - Last 24 Hours (Table) 10/02/23 Range/Units 12:16 Sodium 127 L (137-145) mmol/L BUN 5 L (7-17) mg/dL Creatinine 0.42 L (0.52-1.04) mg/dL Glucose 104 H (74-99) mg/dL Assessment and Plan Time with Patient: Less than 30
== END 2023-10-02 14:49 | disposition home health service (06) ==
LOC: OR 07:59 → 4SSUR 11:41 → OR 10-01 10:19 → 4SSUR 10-01 10:19
PROVIDERS: ADMIT Orthopaedic Surgery; ATTEND Orthopaedic Surgery
DX: M17.11 Unilateral primary osteoarthritis, right knee (principal); G89.18 Other acute postprocedural pain; I25.10 Atherosclerotic heart disease of native coronary artery without angina pectoris; I10 Essential (primary) hypertension; E78.5 Hyperlipidemia, unspecified; Z87.891 Personal history of nicotine dependence; Z95.5 Presence of coronary angioplasty implant and graft; Z79.02 Long term (current) use of antithrombotics/antiplatelets; Z79.899 Other long term (current) drug therapy
CPT/HCPCS: 96376 ×2; 96361; 96365; 96366; 96372 ×2; 96375; 97161; 64999; 64448; 80048 ×2; 85025; 73560; 27447; G0378 ×2; C1776; C1713 ×2; C1751; J2250; J1200; J0690 ×3; J2001; J3010; J1650 ×2; J2795 ×2; J2704; J1170 ×2; J2371

== ENCOUNTER → 2024-08-12 | Outpatient (CLI) | payer MEDICARE ==
[2024-08-12 15:33] LABS: African American GFR (CKD) >90 (>60 ml/min/1.73 sqM); Blood Urea Nitrogen 10 mg/dL (7-17); Non-African American GFR(CKD) >90 (>60 ml/min/1.73 sqM)
--- NOTE | 2024-08-14 05:53 | CT ---
EXAMINATION TYPE: CT ChestAbdPelvis wo/w con DATE OF EXAM: 08/12/2024 COMPARISON: None. HISTORY: weight loss CT DLP: 786 mGycm. Automated Exposure Control for Dose Reduction was Utilized. CONTRAST: CT scan of the thorax, abdomen and pelvis is performed with oral and without and with IV Contrast, pa tient injected with 100ml mL of Isovue 300. FINDINGS: LUNGS: There is mild to moderate underlying emphysematous change with and bilateral peripheral reticu lation and/or fibrotic change diffusely and tiny cystic change in the upper lungs. No focal consolida tion. No pleural effusion or pneumothorax is seen bilaterally. MEDIASTINUM: Moderate to severe three-vessel coronary artery calcification and/or stents. No cardiom egaly or pericardial effusion. Moderate left atrial and left ventricular dilatation. Moderate periphe ral mixed plaque in the thoracic aorta. LIVER/GB: No significant abnormality is appreciated. PANCREAS: Asymmetric fullness to the pancreatic head with prominent vascular calcifications. Possible tortuous vessel versus vascular anomaly. No obvious focal mass. No ductal dilatation. Consider corre lating with pancreatic lab values. SPLEEN: No significant abnormality is seen. ADRENALS: No significant abnormality is seen. KIDNEYS: No significant abnormality is seen. BOWEL: Oral contrast reaches the level of the proximal transverse colon making evaluation of distal b owel slightly suboptimal. No abnormal small or large bowel dilatation is seen. Distal colonic diverti culosis. No convincing CT evidence for acute diverticulitis. GENITAL ORGANS: Anteverted uterus projects to left of midline. LYMPH NODES: No greater than 1cm abdominal or pelvic lymph nodes are appreciated. OSSEOUS STRUCTURES: Scoliotic curvature is seen. Moderate narrowing in both hip joints with mild-to-m oderate spurring. OTHER: Moderate to severe calcified plaque of the aorta extends into branch vessels. IMPRESSION: 1. Some asymmetric fullness to the pancreatic head without definitive visualized mass. No obvious dot picious mass or abnormal adenopathy to suggest neoplasm otherwise seen. [facility], , 08/14/2024 5:50 AM
== END | disposition home or self-care (01) ==
LOC: RADCTMAIN 14:50
PROVIDERS: ATTEND Family Medicine
DX: R63.4 Abnormal weight loss (principal)
CPT/HCPCS: 82565; 84520; 71270; 74178; 36415; Q9967